=== PATIENT | female | born 1970 | race Two or more races ===

== ENCOUNTER 2017-02-01 15:20 | Emergency (ER) | payer SELFPAY ==
[~2017-02-01] VITALS: Ht 154.9 cm; Wt 59.9 kg
[2017-02-01] MEDS ORDERED: MORPHINE SULFATE 4 MG/ML, 1ML ONE (15:40)
[2017-02-01] MEDS ORDERED: ONDANSETRON 2MG/ML, 2ML ONE (15:40)
[2017-02-01] MEDS ORDERED: FAMOTIDINE 20 MG/2 ML ONE (15:40)
[2017-02-01 15:55] LABS: HEMATOCRIT 45.5 % (34.6-47.8); HEMOGLOBIN 15.1 g/dL (11.7-16.4); WHITE BLOOD COUNT 6.9 x10^3/uL (3.4-10)
[2017-02-01] MEDS ORDERED: SODIUM CHLORIDE FLUSH 10ML SYR IVF ONE (16:00)
[2017-02-01] MEDS ORDERED: ONDANSETRON 2MG/ML, 2ML IVPush ONE (16:00)
[2017-02-01] MEDS ORDERED: FAMOTIDINE 20 MG/2 ML IVP ONE (16:00)
[2017-02-01] MEDS ORDERED: MORPHINE SULFATE 4 MG/ML, 1ML IVPush PRN (16:00)
[2017-02-01] MEDS ORDERED: SODIUM CHLORIDE 0.9% 1,000ML IVBOLUS ONE (16:00)
[2017-02-01 16:06] LABS: ASPARTATE AMINO TRANSFERASE 9 U/L (15-37); BLOOD UREA NITROGEN 16 mg/dL (7-18)
[2017-02-01] MEDS ORDERED: MAALOX/HYOSCYAMINE/LIDOCAINE 45 ML BTL PO ONE (16:30)
[2017-02-01] MEDS ORDERED: MAALOX/HYOSCYAMINE/LIDOCAINE 45 ML BTL ONE (16:35)
[2017-02-01 17:39] VITALS: BP 130/72
== END 2017-02-01 17:49 | disposition home or self-care (01) ==
LOC: ED 16:02
DX: K80.20 Calculus of gallbladder without cholecystitis without obstruction (principal)
CPT/HCPCS: 36415; 76700; 80053; 81001; 83690; 84703; 85025; 96361; 96374; 96375; 99285; J2405; J7030; S0028